=== PATIENT | female | born 1980 | race Caucasian/White ===

== ENCOUNTER → 2016-07-17 | Outpatient (CLI) | payer BC, OTHER ==
[2016-07-17 12:19] LABS: HEMOGLOBIN 13.6 gm/dl (12.3-15.3); RED BLOOD COUNT 4.49 M/UL (4.00-5.10); WHITE BLOOD COUNT 10.2 K/UL (4.5-11.0)
[2016-07-17 12:38] LABS: BUN/CREATININE RATIO 18 (0-10)
== END ==
LOC: LAB 11:35
PROVIDERS: Nurse Practitioner
DX: E04.9 Nontoxic goiter, unspecified (principal); R53.83 Other fatigue; R63.5 Abnormal weight gain
CPT/HCPCS: 80053; 80061; 83970; 84436; 84443; 84480; 85025

== ENCOUNTER → 2016-07-19 | Outpatient (CLI) | payer BC, OTHER | LOC: KOH-I 08:58 | DX: E04.9 Nontoxic goiter, unspecified (principal); E04.1 Nontoxic single thyroid nodule | CPT/HCPCS: 76536 ==

== ENCOUNTER 2020-05-07 10:02 | Emergency (ER) | payer BC, OTHER ==
[~2020-05-07 10:02] MED LIST: IBUPROFEN600 MG PO; IBUPROFEN800 MG PO; TORADOL 10 MG T10 MG PO; ZOFRAN4 MG PO
[2020-05-07 11:57] LABS: HEMOGLOBIN 13.6 gm/dl (12.3-15.3); RED BLOOD COUNT 4.42 M/UL (4.00-5.10)
[2020-05-07 12:17] LABS: BUN/CREATININE RATIO 15 (0-10)
== END 2020-05-07 13:04 | disposition home or self-care (01) ==
LOC: ER1 10:02
PROVIDERS: Emergency Medicine
DX: R55 Syncope and collapse (principal); Z88.2 Allergy status to sulfonamides
CPT/HCPCS: 70450; 71045; 80053; 81001; 82550; 82553; 83874; 84484; 84703; 85025; 85379; 99284

== ENCOUNTER → 2020-05-27 | Outpatient (CLI) | payer BC, OTHER | LOC: US 05-26 13:30 | DX: E04.9 Nontoxic goiter, unspecified (principal); E04.1 Nontoxic single thyroid nodule | CPT/HCPCS: 76536 ==

== ENCOUNTER → 2020-08-10 | Outpatient (CLI) | payer BC, OTHER | LOC: EXRD 15:11 | DX: Z13.89 Encounter for screening for other disorder (principal); Z82.71 Family history of polycystic kidney | CPT/HCPCS: 76775 ==

== ENCOUNTER → 2020-09-22 | Outpatient (CLI) | payer BC, OTHER | LOC: EMI 07-31 13:00 | DX: R56.9 Unspecified convulsions (principal); R55 Syncope and collapse | CPT/HCPCS: 70551 ==

== ENCOUNTER → 2021-03-02 | Outpatient (CLI) | payer BC, OTHER | LOC: RAD 15:18 | DX: R07.89 Other chest pain (principal); R05.9 Cough, unspecified; J98.09 Other diseases of bronchus, not elsewhere classified | CPT/HCPCS: 71046 ==